=== PATIENT | male | born 1990 | race Caucasian/White ===

== ENCOUNTER 2017-06-03 12:15 | Inpatient (IN) | payer OTHER ==
[~2017-06-03] VITALS: Ht 22.9 cm; Wt 70.3 kg
[2017-06-03 13:40] VITALS: BP 122/59
[2017-06-03 14:43] LABS: BASO % 0.7 % (0.0-1.0); EOS # 0.3 10*3/uL (0.0-0.4); EOS % 5.7 % (1.0-4.0); HEMATOCRIT 47.6 % (42.0-52.0); HEMOGLOBIN 15.1 g/dl (14.0-18.0); LYMPH # 1.6 10*3/uL (1.3-4.4); LYMPH % 27.5 % (27.0-41.0); MEAN CORPUSCULAR HGB 28.5 pg (27.0-31.0); MEAN CORPUSCULAR HGB CONC 31.7 g/dl (33.0-37.0); MEAN PLATELET VOLUME 9.6 fl (9.6-12.3); MONO # 0.5 10*3/uL (0.1-1.0); MONO % 8.5 % (3.0-9.0); NEUT # 3.2 10*3/uL (2.3-7.9); NEUT % 57.2 % (47.0-73.0); PLATELET COUNT AUTOMATED 249 10*3/uL (130-400); RED BLOOD COUNT 5.29 10*6/uL (4.50-5.90); RED CELL DISTRI WIDTH 13.5 % (0-14.5); WHITE BLOOD COUNT 5.6 10*3/uL (4.8-10.8)
[2017-06-03 14:50] LABS: INTERNATIONAL NORM RATIO 0.9 (2.0-3.5)
[2017-06-03 15:06] LABS: ALBUMIN 4.1 gm/dl (3.1-4.5); ALKALINE PHOSPHATASE 75 U/L (45-117); BUN 14 mg/dl (7-24); CHLORIDE 103 mmol/L (98-107); CREATININE 0.91 mg/dL (0.70-1.30); LIPASE 129 U/L (73-393); POTASSIUM 4.3 mmol/L (3.5-5.1); SGOT/AST 13 IU/L (3-35); SGPT/ALT 36 U/L (12-78); SODIUM 139 mmol/L (136-145); TOTAL PROTEIN 8.2 gm/dL (6.4-8.2)
[2017-06-03 15:10] LABS: ETHYL ALCOHOL < 3.0 mg/dl (<3)
[2017-06-03 16:00] VITALS: BP 135/84
[2017-06-03 19:00] LABS: BILIRUBIN NEGATIVE (NEGATIVE); BLOOD NEGATIVE (NEGATIVE); CLARITY CLEAR (CLEAR); COLOR YELLOW (YELLOW); GLUCOSE NEGATIVE (NEGATIVE); KETONE TRACE (NEGATIVE); LEUKO ESTERASE NEGATIVE (NEGATIVE); NITRITE NEGATIVE (NEGATIVE); SPECIFIC GRAVITY >= 1.030 (1.005-1.030); UROBILINOGEN 0.2 E.U./dl (0.2-1.0)
[2017-06-03 19:08] LABS: URINE AMPHETAMINES < 1000 (1000ng/ml); URINE BARBITURATES < 200 (200ng/ml); URINE BENZODIAZEPINES < 200 (200ng/ml); URINE CANNABINOIDS (THC) > 50 (50ng/ml); URINE COCAINE > 300 (300ng/ml); URINE METHADONE < 300 (300ng/ml); URINE OPIATES > 300 (300ng/ml)
[2017-06-03 19:14] LABS: URINE PHENCYCLIDINE < 25 (25ng/ml)
[2017-06-03 19:22] LABS: BACTERIA TRACE; CALCIUM OXALATE CRYSTALS 2+; RBC 0-2 rbc/hpf (0-2); WBC 0-2 wbc/hpf (0-5)
[2017-06-03 20:00] VITALS: BP 135/84; BP 166/79
[2017-06-04] VITALS: BP 133/72
[2017-06-04 04:00] VITALS: BP 137/88
[2017-06-04 08:00] VITALS: BP 119/68
[2017-06-04 12:00] VITALS: BP 124/71
[2017-06-04 16:00] VITALS: BP 123/71
[2017-06-04 20:00] VITALS: BP 135/82
[2017-06-05] VITALS: BP 136/69
[2017-06-05 08:00] VITALS: BP 107/86
[2017-06-05 12:00] VITALS: BP 92/64
== END 2017-06-05 16:34 | disposition left against medical advice (07) | DRG 894 ==
LOC: 4E 12:15
PROVIDERS: Internal Medicine
DX: F11.23 Opioid dependence with withdrawal (principal); F12.10 Cannabis abuse, uncomplicated; F14.10 Cocaine abuse, uncomplicated; Z53.21 Procedure and treatment not carried out due to patient leaving prior to being seen by health care provider; R25.2 Cramp and spasm; Z72.0 Tobacco use; Z71.6 Tobacco abuse counseling; Z82.49 Family history of ischemic heart disease and other diseases of the circulatory system

== ENCOUNTER 2017-12-25 12:04 | Inpatient (IN) | payer OTHER ==
[~2017-12-25] VITALS: Ht 177.8 cm; Wt 67.1 kg
--- NOTE | ~2017-12-25 | EKG ---
[place], [place] ELECTROCARDIOGRAM REPORT NAME: LORNE CELESTE UNIT #: [id number] ROOM: 503 DOCTOR: GRISELDA DRAFT REPORT BIRTHDATE: [birth year] [facility] Test Date: 2017-12-25 Test Time: 17:39:10 Pat Name: LORNE CELESTE Department: Room: 503 2 Gender: M Supervisor Coating: 18 : 1990 Requested By: MIMI ARNOLD Order Number: [id number] Reading MD: John Beaver MD Measurements Intervals [place] Rate: 66 P: 49 DE: 119 QRS: 81 QRSD: 96 T: 25 QT: 374 QTc: 392 Interpretive Statements Sinus rhythm Borderline short DE interval ST elev, probable normal early repol pattern Electronically Signed On 12-25-2017 19:10:09 PDT by John Beaver MD CM:EKGRPT:ELECTROCARDIOGRAM REPORT [id number] MIMI ARNOLD EPIPHANY DRAFT REPORT MIMI ARNOLD
[2017-12-25 12:00] VITALS: BP 135/80
[2017-12-25 12:06] VITALS: BP 114/60
[2017-12-25 12:25] LABS: BASO # 0.1 10*3/uL (0.0-0.1); BASO % 0.9 % (0.0-1.0); EOS # 0.1 10*3/uL (0.0-0.4); EOS % 1.5 % (1.0-4.0); HEMATOCRIT 44.9 % (42.0-52.0); HEMOGLOBIN 14.5 g/dl (14.0-18.0); LYMPH % 18.1 % (27.0-41.0); MEAN CELL VOLUME 90.2 fl (80.0-94.0); MEAN CORPUSCULAR HGB 29.1 pg (27.0-31.0); MEAN CORPUSCULAR HGB CONC 32.3 g/dl (33.0-37.0); MEAN PLATELET VOLUME 9.2 fl (9.6-12.3); MONO # 0.4 10*3/uL (0.1-1.0); MONO % 7.6 % (3.0-9.0); NEUT # 3.9 10*3/uL (2.3-7.9); NEUT % 71.5 % (47.0-73.0); PLATELET COUNT AUTOMATED 279 10*3/uL (130-400); RED BLOOD COUNT 4.98 10*6/uL (4.50-5.90); RED CELL DISTRI WIDTH 13.2 % (0-14.5); WHITE BLOOD COUNT 5.5 10*3/uL (4.8-10.8)
[2017-12-25 12:40] LABS: ALBUMIN 3.9 gm/dl (3.1-4.5); ALKALINE PHOSPHATASE 59 U/L (45-117); BUN 11 mg/dl (7-24); CHLORIDE 101 mmol/L (98-107); CREATININE 0.89 mg/dL (0.70-1.30); LIPASE 99 U/L (73-393); POTASSIUM 4.2 mmol/L (3.5-5.1); SGOT/AST 12 IU/L (3-35); SGPT/ALT 27 U/L (12-78); SODIUM 137 mmol/L (136-145)
[2017-12-25 12:44] VITALS: BP 117/68
[2017-12-25 14:30] LABS: BILIRUBIN NEGATIVE (NEGATIVE); BLOOD NEGATIVE (NEGATIVE); CLARITY CLOUDY (CLEAR); COLOR YELLOW (YELLOW); GLUCOSE NEGATIVE (NEGATIVE); KETONE NEGATIVE (NEGATIVE); LEUKO ESTERASE NEGATIVE (NEGATIVE); NITRITE NEGATIVE (NEGATIVE); PH 8.5 (5.0-9.0); SPECIFIC GRAVITY 1.015 (1.005-1.030)
[2017-12-25 14:49] LABS: URINE AMPHETAMINES < 1000 (1000ng/ml); URINE BARBITURATES < 200 (200ng/ml); URINE BENZODIAZEPINES < 200 (200ng/ml); URINE CANNABINOIDS (THC) > 50 (50ng/ml); URINE COCAINE > 300 (300ng/ml); URINE METHADONE < 300 (300ng/ml); URINE OPIATES > 300 (300ng/ml); URINE PHENCYCLIDINE < 25 (25ng/ml)
[2017-12-25 14:52] LABS: BACTERIA TRACE
[2017-12-25 16:00] VITALS: BP 116/68
[2017-12-25 20:00] VITALS: BP 113/57
[2017-12-26] VITALS: BP 111/70
[2017-12-26 08:00] VITALS: BP 114/76
[2017-12-26 13:00] VITALS: BP 108/54
[2017-12-26 16:22] VITALS: BP 118/56
[2017-12-26 20:00] VITALS: BP 110/61
[2017-12-27] VITALS: BP 114/68
[2017-12-27 08:00] VITALS: BP 87/44; BP 92/50
[2017-12-27 12:00] VITALS: BP 86/67
[2017-12-27] MEDS ORDERED: MOTRIN 600 MG E4 TAB PO (12:16)
[2017-12-27] MEDS ORDERED: NATURE'S BLEND F1 MG PO (12:16)
[2017-12-27] MEDS ORDERED: ATARAX,VISTARIL50 MG PO (12:16)
[2017-12-27] MEDS ORDERED: METHOCARBAMOL750 M1 PO (12:16)
[2017-12-27] MEDS ORDERED: DICYCLOMINE HCL20 MG PO (12:16)
[2017-12-27] MEDS ORDERED: NATURE'S BLEND100 M2 PO (12:16)
[2017-12-27 16:00] VITALS: BP 106/65
[2017-12-27 20:00] VITALS: BP 121/62
[2017-12-28] VITALS: BP 101/84
[2017-12-28 08:00] VITALS: BP 109/59
== END 2017-12-28 09:24 | disposition left against medical advice (07) | DRG 894 ==
LOC: ED 12:04 → EDHOLD 12:14 → 5E 12:14
PROVIDERS: Emergency Medicine; Registered Nurse
DX: F11.23 Opioid dependence with withdrawal (principal); F14.90 Cocaine use, unspecified, uncomplicated; F12.90 Cannabis use, unspecified, uncomplicated; E83.41 Hypermagnesemia; F41.9 Anxiety disorder, unspecified; F11.29 Opioid dependence with unspecified opioid-induced disorder; Z53.21 Procedure and treatment not carried out due to patient leaving prior to being seen by health care provider; Z72.0 Tobacco use; Z82.49 Family history of ischemic heart disease and other diseases of the circulatory system; Z71.6 Tobacco abuse counseling